=== PATIENT | female | born 1990 | race Caucasian/White ===

== ENCOUNTER 2022-03-09 08:22 | Outpatient (CLI) | payer OTHER, SELFPAY ==
[2022-03-09 09:20] LABS: Alanine Aminotransferase 23 U/L (6-35); Albumin Level 4.2 g/dL (3.5-5.1); Alkaline Phosphatase 123 U/L (38-126); Anion Gap 10 mmol/L (8-16); Aspartate Amino Transferase 23 U/L (14-36); Bilirubin,Total 0.6 mg/dL (0.2-1.3); Blood Urea Nitrogen 12 mg/dL (7-17); Calcium 8.8 mg/dL (8.4-10.2); Carbon Dioxide 24 mmol/L (22-30); Chloride 105 mmol/L (98-107); Cholesterol 160 mg/dL (0-200); Estimated Glomerular Filt Rate > 60; Glucose 97 mg/dL (65-110); HDL Direct 34 mg/dL; Potassium 3.9 mmol/L (3.4-5.0); Sodium 139 mmol/L (137-145); Triglycerides 181 mg/dL (<150)
[2022-03-09 09:31] LABS: LDL Cholesterol Direct 91 mg/dL
[2022-03-09 09:33] LABS: Hemoglobin A1C 4.8 % (<5.7)
[2022-03-09 09:51] LABS: Thyroid Stimulating Hormone 0.957 uIU/mL (0.465-4.680)
[2022-03-09 10:26] LABS: Folic Acid 11.2 ng/mL (2.76->20)
[2022-03-09 10:27] LABS: Free T4 Free Thyroxine 0.91 ng/mL (0.78-2.19); Vitamin D 25 Hydroxy 45.7 ng/mL
[2022-03-12 03:55] LABS: Thyroid Peroxidase Antibodies <1 IU/mL (<9)
== END 2022-03-09 08:23 | disposition home or self-care (01) ==
LOC: ANHLAB 08:34
PROVIDERS: PCP Internal Medicine Endocrinology, Diabetes & Metabolism; Referring Provider Internal Medicine Endocrinology, Diabetes & Metabolism; Visit Provider Internal Medicine Endocrinology, Diabetes & Metabolism
DX: E06.3 Autoimmune thyroiditis (principal); E53.8 Deficiency of other specified B group vitamins; E55.9 Vitamin D deficiency, unspecified
CPT/HCPCS: 36415; 80053; 80061; 82306; 82607; 82746; 83036; 84439; 84443; 84481; 86376

== ENCOUNTER 2022-06-08 09:05 | Outpatient (CLI) | payer OTHER, SELFPAY ==
[2022-06-15 04:58] LABS: Fecal Fat, Ql Normal (Normal)
[2022-06-15 13:41] LABS: Gliadin AB, IgG <1.0 U/mL (<15.0); TTG IGA AB <1.0 U/mL (<15.0)
[2022-06-17 18:27] LABS: Pancreatic Elastase, Stool >500 mcg/g
== END 2022-06-08 09:06 | disposition home or self-care (01) ==
PROVIDERS: PCP Internal Medicine Endocrinology, Diabetes & Metabolism; Visit Provider Internal Medicine Endocrinology, Diabetes & Metabolism
DX: R14.0 Abdominal distension (gaseous) (principal)
CPT/HCPCS: 36415; 82653; 82705; 83516; 86003; 86255

== ENCOUNTER 2022-06-15 08:05 | Outpatient (CLI) | payer OTHER, SELFPAY ==
--- NOTE | ~2022-06-15 | DEXA_ITS ---
Bone Density Report Name: RADHA CARREON Age: 32 Sex: Female Ethnicity: White Date of : 1990 Indication: postmenopausal; parental hip fracture; Referring Provider: YOHAN, BRYAN Marino Study: Bone densitometry was performed. Exam Date: June 15, 2022 Accession number: [id number] Bone Density: Region BMD T-score Z-score Classification AP Spine(L1-L4) 1.059 0.1 Femoral Neck (Left) 1.069 2.1 Total Hip (Left) 1.239 2.5 Femoral Neck (Right) 0.975 1.2 Total Hip (Right) 1.161 1.8 Total Hip Mean 1.200 2.2 World Health Organization criteria for BMD impression classify patients as: Normal (T-score at or above -1.0), Osteopenia (T-score between -1.0 and -2.5), or Osteoporosis (T-score at or below -2.5). 10-year Fracture Risk(1): Major Osteoporotic Fracture 3.1% Hip Fracture < 0.1% Reported Risk Factors: [place] (), Neck BMD=0.975, BMI=40.5, parental fracture Input outside FRAX(R) limits. Adjusted to:Age=40 (1) FRAX(R) Version 3.08. Fracture probability calculated for an untreated patient. Fracture probability may be lower if the patient has received treatment. Clinical Information Provided by Patient: Parent has had a hip fracture Has used the following medications: Vitamin D Patient maximum height was 64 No regular weight bearing exercise Drinks caffeinated beverages Onset of menses at age 10 Number of children 2 Impression: The patient has risk factors, including: parental hip fracture. Discussion: BONE DENSITY IS ABOVE THE MINIMUM DESIRABLE LEVEL AT ALL SKELETAL SITES TESTED. This patient?s bone mineral density is above the minimum desirable level (T-score -1.0 or better) at all sites measured. The patient should follow a healthful lifestyle (good nutrition with adequate calcium and vitamin D, and appropriate weight-bearing exercise). Follow-Up: Consider repeating this study in 5 years or sooner if there is some new clinical indication. Reported by: STORMY on 06/15/2022 10:51:00 AM. Reviewed, dictated and finalized at location [facility]
== END 2022-06-15 08:06 | disposition home or self-care (01) ==
LOC: ANHIMG 08:06
PROVIDERS: PCP Internal Medicine Endocrinology, Diabetes & Metabolism; Visit Provider Internal Medicine Endocrinology, Diabetes & Metabolism
DX: Z82.62 Family history of osteoporosis (principal)
CPT/HCPCS: 77080

== ENCOUNTER 2022-07-28 09:00 | Outpatient (RCR) | payer OTHER, SELFPAY ==
--- NOTE | 2022-06-15 15:53 | PTOPEVAL1 ---
Assessment and note entered by Elinor Willis, PT Evaluation Information Assessment Status Evaluation Diagnosis cervical spondylosis Onset past year Subjective Information chronic pain in neck for 5 years, with vomiting during --troubles since then; more spasms and pain over the past year and went to dr; had EMG over both arms: mild carpal tunnel B and elbow nerve subluxing ; had MRI Jacob cervical disc protruding and more curvature in neck; dr said to do therapy and if therapy did not help, consider injections into disc space; have not had PT for neck; Reported Pain Level Pain Score Self Report Additional Pain Score Comments pain range of 0-6/10; spasms in neck, numbness in both arms--into R and L 4 & 5th fingers; hearing muffled, little dizzy and blurry vision; get headaches at base of skull and to R or L side of head, behind ear; headaches occur few times a week, take meds and ease 1-2 hours; pain increases with movement of neck--looking down looking up; with sleeping awaken with pain 2x/ wk with moving and pain increase; decrease pain with meds--aleve, upright position of neck, move and change position; use Biofreeze, massage gun; also have issues with mild B carpal tunnel and elbow nerve dislocate ; demo and educated on use of Theracane for self massage to trigger points--used with good relief and stated she is going to obtain one for home; reinforced use of heat and stretching to relax muscles. Assessment PT Clinical Summary Mally has the diagnosis of cervical pain with radiculopathy into R and L fingers, with headaches 2x/wk. She reports chronic pain in neck with recent increase. Oswestry self assessment score of 30% limitation in activity level. Activity level and sleep are disrupted due to pain. She has had an EMG for R and L UE, with report of mild carpal tunnel and elbow nerve dislocation B. And reports not being able to hold onto things very well or open jars. 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
--- NOTE | 2022-07-28 09:21 | PTOPDC ---
Assessment and note entered by Elinor Willis, PT Evaluation Information Assessment Status Discharge Diagnosis cervical spondylosis Onset past year Subjective Information Mally reports: doing much better, not having any neck pain; has been doing her exercises--the stretches help her pain and headaches; ready to be completed with therapy. Neck self assessment score of 2% limitation in activity. Reported Pain Level Pain Score 0: Self Report Additional Pain Score Comments have not had any neck pain the past week, did have a headache last week, like tension headache, took ibuprofen and it eased with stretching, did not last very long,; no waking up from sleeping due to neck pain; intermittent numbness and tingling in both arms from elbows into 4 & 5th fingers-- mostly at night with sleeping and elbows bent, tried the braces, but could not sleep with them; Assessment PT Clinical Summary Mally has received 8 PT sessions. Compared to the initial evaluation: she has improved in all areas: pain at the high rating from 6 to 0/10; only 1 headache in the past week; no pain with cervical ROM; posture and strength increased over cervical-thoracic musculature and cherry pitter dynamometer; self assessment functional score rating from 20 to 2%. She has been educated on home exercises and posture. She continues to have some numbness and tingling over R and L ulnar nerve with sleeping, due to elbows bent. The goals were achieved. Discharge PT services. Plan of Care PT Services Indicated No
== END 2022-08-29 12:58 | disposition home or self-care (01) ==
LOC: ANHPT 09:00
PROVIDERS: PCP Internal Medicine Endocrinology, Diabetes & Metabolism
DX: M54.2 Cervicalgia (principal); R20.2 Paresthesia of skin; M79.18 Myalgia, other site
CPT/HCPCS: 97110; 97140; 97162; 97530

== ENCOUNTER 2022-09-14 10:22 | Outpatient (CLI) | payer OTHER, SELFPAY ==
[2022-09-14 13:46] LABS: Alanine Aminotransferase 22 U/L (6-35); Albumin Level 4.5 g/dL (3.5-5.1); Alkaline Phosphatase 107 U/L (38-126); Anion Gap 7 mmol/L (8-16); Aspartate Amino Transferase 22 U/L (14-36); Bilirubin,Total 0.5 mg/dL (0.2-1.3); Blood Urea Nitrogen 8 mg/dL (7-17); Calcium 9.2 mg/dL (8.4-10.2); Carbon Dioxide 26 mmol/L (22-30); Chloride 106 mmol/L (98-107); Estimated Glomerular Filt Rate > 60; Glucose 99 mg/dL (65-110); Potassium 4.1 mmol/L (3.4-5.0); Sodium 139 mmol/L (137-145)
[2022-09-14 14:00] LABS: Free T4 Free Thyroxine 0.99 ng/mL (0.78-2.19)
[2022-09-17 13:36] LABS: Thyroid Peroxidase Antibodies <1 IU/mL (<9)
[2022-09-18 04:20] LABS: Triiodothyronine T3 Free 3.4 pg/mL (2.3-4.2)
== END 2022-09-14 10:23 | disposition home or self-care (01) ==
LOC: ANHLAB 10:25
PROVIDERS: PCP Internal Medicine Endocrinology, Diabetes & Metabolism; Visit Provider Internal Medicine Endocrinology, Diabetes & Metabolism
DX: E06.3 Autoimmune thyroiditis (principal)
CPT/HCPCS: 36415; 80053; 84439; 84443; 84481; 86376

== ENCOUNTER 2023-03-01 06:51 | Outpatient (CLI) | payer OTHER, SELFPAY ==
[2023-03-01 08:07] LABS: Basophils Percent Auto 0.7 % (0.2-1.2); Eosinophils Absolute Auto 0.2 K/mm3 (0-0.3); Eosinophils Percent Auto 3.5 % (0-4.4); Hematocrit 43.2 % (37.0-47.0); Hemoglobin 14.1 g/dL (12.0-15.0); Immature Granulocyte Absolute 0.01 K/mm3 (0.00-0.031); Immature Granulocyte Percent A 0.2 % (0-0.5); Lymphocytes Absolute Auto 0.95 K/mm3 (0.9-3.2); Mean Corpuscular HGB Conc 32.6 g/dl (32-36); Mean Corpuscular Hemoglobin 29.6 pg (26-34); Mean Corpuscular Volume 90.8 fl (80-100); Mean Platelet Volume 12.3 fl (7.4-10.4); Monocytes Absolute Auto 0.3 K/mm3 (0.1-0.6); Monocytes Percent Auto 7.5 % (2.6-8.5); Neutrophils Percent Auto 67.1 % (45.5-73.1); Platelet Count Result 158 k/mm3 (150-375); Red Blood Count 4.76 M/mm3 (4.2-5.4); Red Cell Distribution Width 12.7 % (11.5-14.5); White Blood Count 4.5 K/mm3 (4.5-10.0)
[2023-03-01 08:19] LABS: Alanine Aminotransferase 23 U/L (6-35); Albumin Level 4.2 g/dL (3.5-5.1); Alkaline Phosphatase 97 U/L (38-126); Anion Gap 6 mmol/L (8-16); Aspartate Amino Transferase 23 U/L (14-36); Bilirubin,Total 0.4 mg/dL (0.2-1.3); Blood Urea Nitrogen 10 mg/dL (7-17); Calcium 8.7 mg/dL (8.4-10.2); Carbon Dioxide 29 mmol/L (22-30); Chloride 106 mmol/L (98-107); Cholesterol 145 mg/dL (0-200); Estimated Glomerular Filt Rate > 60; Glucose 92 mg/dL (65-110); HDL Direct 33 mg/dL; Sodium 141 mmol/L (137-145); Triglycerides 109 mg/dL (<150)
[2023-03-01 08:30] LABS: LDL Cholesterol Direct 88 mg/dL
[2023-03-01 08:35] LABS: T4 Thyroxine 9.78 ug/dL (5.53-11.0)
[2023-03-01 08:49] LABS: Thyroid Stimulating Hormone 0.799 uIU/mL (0.465-4.680)
== END 2023-03-01 06:52 | disposition home or self-care (01) ==
LOC: ANHLAB 06:53
PROVIDERS: PCP Family Medicine; Visit Provider Family Medicine
DX: Z13.29 Encounter for screening for other suspected endocrine disorder (principal); Z13.220 Encounter for screening for lipoid disorders; I10 Essential (primary) hypertension
CPT/HCPCS: 36415; 80053; 80061; 84436; 84443; 85025

== ENCOUNTER 2023-04-17 15:45 | Outpatient (RCR) | payer OTHER, SELFPAY ==
--- NOTE | 2023-03-15 17:25 | PTOPEVAL1 ---
Assessment and note entered by Aroldo Angelo Evaluation Information Assessment Status Evaluation Diagnosis right hip pain Onset 12/13/22 Subjective Information Pt. reports that she developed described hip pain about 3 months ago. She describes pain at the greater trochanter, into the buttock, through the hamstring and down to the knee. She does notices some clicking into the hip. She reports that pain is worsened with walking and standing. She also notices pain increase with weather changes. She reports that pain can only be relieved with taking Aleve and described self massage. She reports that she has attempted heat with little relief. Pt. reports that she is able to stand as long as she needs, just becomes more painful the longer she stands. She states that pain will disrupt her sleep on occasion. She reports her goal for therapy is to decrease her pain for standing. Reported Pain Level Pain Score 8: Self Report Assessment PT Clinical Summary Pt. is a 32 year old female who enters the clinic with right hip pain. Cannot fully rule out lumbar radiculopathy or piriformis syndrome on this date . She currently presents with impaired flexibility, impaired gait, impaired l.e. strength , impaired postural awareness and pain. She responds well to Rx with pain reports at 3/10 post treatment. Continued skilled PT is indicated in order to address deficits to allow for improved comfort with IADL performance. Plan of Care Interventions Electrical Stimulation,Gait Training,Hot Pack/Cold Pack,Manual Therapy,Mechanical Traction,Neuro Re- education,Patient/Caregiver Educati,Therapeutic Activities,Therapeutic Exercise PT Services Indicated Yes Treatment Frequency and 2x/week x 10 visits Duration These treatments will address the objective and functional deficits as defined above. The patient will be advanced safely and appropriately in order for the patient to progress towards his/her prior level of function. Additional exercises will be introduced and as well as a comprehensive home exercise program upon discharge, if needed, ?to ensure carryover of functional gains achieved in the clinic. This treatment plan has been reviewed and agreement upon by the patient.
--- NOTE | 2023-03-15 17:25 | OPREHPOC ---
Outpatient Therapy Plan of Care This is a Multidisciplinary Plan of Care that may contain components documented by all disciplines (PT, OT, and ST.) PT Problem 1 PT Problem #1 Knowledge Deficit PT Goal 1 Goal Independent with a HEP addressing core strength and flexibility. Target Visit 2 PT Problem 2 PT Problem #2 Impaired Flexibility PT Goal 1 Goal Present at 15 degrees from full knee extension with the 90/90 test on the right and left. Target Visit 8 PT Problem 3 PT Problem #3 Impaired Gait PT Goal 1 Goal Pt. will ambulate over level surface without deviation Target Visit 10 PT Problem 4 PT Problem #4 Impaired Functional Mobil PT Goal 1 Goal -Pt. will increase LEFS score to 75 or greater indicating significant improvement in function. -Pt. will report being able to sleep through the night without pain disturbance. Target Visit 10 PT Problem 5 PT Problem #5 Impaired Strength PT Goal 1 Goal Pt. will present with 5/5 bilateral hip abduction strength and 5/5 right hip flexion strength Target Visit 10
--- NOTE | 2023-04-17 16:24 | PTOPDC ---
Assessment and note entered by Elinor Willis, PT Evaluation Information Assessment Status Discharge Diagnosis right hip pain Onset 12/13/22 Subjective Information pain is less, doing more activity- walked around in [place] yesterday; doing exercises at home, feel like ready to be finished with therapy; has good knowledge of what to do to help her pain; Reported Pain Level Pain Score Self Report Additional Pain Score Comments pain range of 0-3/10 in past week; intermittent achy in lateral hip and thigh, low back; when weather changes have achy feeling all over; decrease pain: stretching, roller over ITB; is able to sleep through the night without awakening; use a pillow between her knees; back pain is not as much; Assessment PT Clinical Summary Mally has received 8 PT sessions. Compared to the initial evaluation: pain at worst rating from 101/0 to 3/10; reported sleeping tolerance improved- able to sleep through the night; increased strength and activity level; Self assessment LE functional scale score of 63 to 74/80; is walking without limp on R LE; no pain with hamstring or piriformis stretch on R; increase flexibility of R hamstring and piriformis indep with HEP and has good understanding of self management of pain. The goals were achieved. Discharge PT. She is to continue with HEP and monitor posture. Plan of Care PT Services Indicated No
== END 2023-04-18 09:47 | disposition home or self-care (01) ==
LOC: ANHPT 15:45
PROVIDERS: PCP Family Medicine; Visit Provider Family Medicine
DX: M25.551 Pain in right hip (principal)
CPT/HCPCS: 97110; 97140; 97161

== ENCOUNTER 2023-04-27 00:44 | Day surgery (SDC) | payer OTHER, SELFPAY ==
[2023-04-13 13:56] VITALS: BMI 42.5
--- NOTE | 2023-04-26 12:14 | PM.HPGS ---
History of Present Illness History of Present Illness Consent: Risks, benefits, and alternatives have been discussed and questions answered. Patient agrees to proceed with procedure. Chief complaint: Melena,Change in Bowel Habits, vomiting,GERD Narrative: Mally Rose is a 33 year old female Who has had a noticeable change in bowel habits where she reports that they are #5 on the [place] stool scale and it is ?stringy?. She feels like she has to constantly wipe to get clean.? She also states that she will have hard pellet-like stools as well.? She does report bilateral lower abdominal cramping with bowel movements that does not always dissipate after.? She also reports ?oily? stools.? She does report constant rectal pressure and feeling like something is always there-she does not see any relief with standing up.? She even reports after the bowel movement the rectal pain will be somewhat worse to where she can not even sit down.? she has seen some blood in her stools as well. She also has symptoms of reflux and has bloating and fullness when eating. She is on Mounjaro, which she just began a month ago. She has had acid reflux symptoms, mostly heartburn, for many years. She usually uses Tums. She has a prescription for pantoprazole but has not yet started it. Review of Systems Review of Systems: All systems reviewed & are unremarkable except as noted in HPI and below PMFSH Past Medical History Medical History Abdominal pain, vomiting, and diarrhea Altered bowel habits Bilateral lower abdominal cramping GERD (gastroesophageal reflux disease) Hematochezia Hypertension IBS (irritable bowel syndrome) Obesity Rectal pressure Right hip pain Screening for cholesterol level Screening for thyroid disorder Tenesmus (rectal) Vomiting Surgical History Surgical History Hx of appendectomy Family History Family History Father Hypertension Heart disease Mother Asthma Diabetes mellitus Thyroid disorder Social History Social History Smoking status: Never smoker Alcohol intake: never Substance use: never Substance use type: does not use Lack of Transportation: No Lack of Food: Never True Current Housing: I Have Housing Concerned About Future Housing: No Difficulty Paying Gas/Electric Bills: No Difficulty Paying for Meds: No Currently Unemployed: No Living arrangements: with family Occupation/Education: occupation 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 Agree to blood products: Yes Meds Home Medications and Allergies Home Medications Medication Instructions Recorded Confirmed Type escitalopram oxalate 10 mg tablet 10 mg PO DAILY #90 tabs 02/22/23 04/27/23 Rx (Lexapro) amlodipine 10 mg tablet 10 mg PO DAILY #90 tabs 04/25/23 04/27/23 Rx pantoprazole 40 mg tablet,delayed 40 mg PO QAM #90 tabs 04/25/23 04/27/23 Rx release tirzepatide 7.5 mg/0.5 mL 7.5 mg (0.5 mL) subcut WEEKLY #2 mL 04/25/23 04/27/23 Rx subcutaneous pen injector (Mounjaro) Allergies Allergy/AdvReac Type Severity Reaction Status Date / Time adhesive tape Allergy Redness of Verified 04/27/23 07:19 Skin nifedipine Allergy Swelling Verified 04/27/23 07:19 HYDROCODONE BIT Allergy Unknown VOMITING Uncoded 04/27/23 07:19 Exam Const: General: alert Orientation/consciousness: patient oriented x3 Resp: Auscultation: clear to auscultation bilaterally Cardio: Rhythm: regular rhythm GI: GI Palp: Yes Soft to palpation and No Tenderness to palpation present (GI) Neuro: General: patient oriented x3 Assessment and Plan Assessment and plan (1) Hematochezia: Code(s): K92.1 - Melena Status: Acute Assessmen
[2023-04-27 07:23] VITALS: BP 121/83; PULSE 92; RESP 16; TEMP 36.2; O2SAT 99
[2023-04-27] MEDS: LACTATED RINGERS 1,000 ML 150 ML IV CONT (07:35)
--- NOTE | 2023-04-27 08:14 | WPDANESEPPF ---
Anes - Initial Pre Proc Eval Procedure: Operation Date: 04/27/23 08:30 Proposed Procedures p Esophagogastroduodenoscopy & Colonoscopy - Trev Sen MD Date/Time: 04/27/23 08:14 Surgeon: Trev Sen MD Pre Op Diagnosis: Melena,Change in Bowel Habits, vomiting,GERD Patient Data Age: 33 Gender: F Height: 1.6 m Weight: 101.4 kg Last Vital Signs Temp 97.1 F L 04/27/23 07:23 Pulse 92 04/27/23 07:23 Resp 16 04/27/23 07:23 BP 121/83 04/27/23 07:23 Pulse Ox 99 04/27/23 07:23 O2 Del Method Room Air 04/27/23 07:23 Allergies Allergy/AdvReac Type Severity Reaction Status Date / Time adhesive tape Allergy Redness of Verified 04/27/23 07:19 Skin nifedipine Allergy Swelling Verified 04/27/23 07:19 HYDROCODONE BIT Allergy Unknown VOMITING Uncoded 04/27/23 07:19 Home Medications Medication Instructions Recorded Confirmed Type escitalopram oxalate 10 mg tablet 10 mg PO DAILY #90 tabs 02/22/23 04/27/23 Rx (Lexapro) amlodipine 10 mg tablet 10 mg PO DAILY #90 tabs 04/25/23 04/27/23 Rx pantoprazole 40 mg tablet,delayed 40 mg PO QAM #90 tabs 04/25/23 04/27/23 Rx release tirzepatide 7.5 mg/0.5 mL 7.5 mg (0.5 mL) subcut WEEKLY #2 mL 04/25/23 04/27/23 Rx subcutaneous pen injector (Mounjaro) Patient hx anesthesia problems: none Family hx anesthesia problems: none Results Review: All pre-operative results and documents have been reviewed as part of the pre-operative evaluation. [facility] Past Medical History Medical History Abdominal pain, vomiting, and diarrhea Altered bowel habits Bilateral lower abdominal cramping GERD (gastroesophageal reflux disease) Hematochezia Hypertension IBS (irritable bowel syndrome) Obesity Rectal pressure Right hip pain Screening for cholesterol level Screening for thyroid disorder Tenesmus (rectal) Vomiting Surgical History Surgical History Hx of appendectomy Family History Family History Father Hypertension Heart disease Mother Asthma Diabetes mellitus Thyroid disorder Social History Social History Smoking status: Never smoker Alcohol intake: never Substance use: never Substance use type: does not use Lack of Transportation: No Lack of Food: Never True Current Housing: I Have Housing Concerned About Future Housing: No Difficulty Paying Gas/Electric Bills: No Difficulty Paying for Meds: No Currently Unemployed: No Living arrangements: with family Occupation/Education: occupation 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 Informed Consent: The patient's anesthetic plan and its attendant risks and benefits were discussed with the patient/family/POA. Questions were solicited and answers provided to the satisfaction of the patient/family/POA.
[2023-04-27 08:56] VITALS: BP 114/76; PULSE 84; RESP 15; O2SAT 99
[2023-04-27 09:06] VITALS: BP 119/85; PULSE 74; RESP 16; O2SAT 100
[2023-04-27 09:16] VITALS: BP 124/88; PULSE 77; RESP 21; O2SAT 100
--- NOTE | 2023-04-27 09:16 | SUR.OPER ---
EGD started at 0824 and ended at 0829. Colonoscopy started at 0835 and ended at 0857.
== END 2023-04-27 09:22 | disposition home or self-care (01) ==
PROVIDERS: PCP Family Medicine; Visit Provider Internal Medicine Gastroenterology
PROC: 0DJ08ZZ Inspection of Upper Intestinal Tract, Via Natural or Artificial Opening Endoscopic (ICD-10-PCS; CPT 43235; principal; 2023-04-27 08:30)
DX: K29.50 Unspecified chronic gastritis without bleeding (principal); K21.00 Gastro-esophageal reflux disease with esophagitis, without bleeding; K29.80 Duodenitis without bleeding; K22.2 Esophageal obstruction; K62.1 Rectal polyp; K44.9 Diaphragmatic hernia without obstruction or gangrene; K57.30 Diverticulosis of large intestine without perforation or abscess without bleeding; I10 Essential (primary) hypertension; K58.9 Irritable bowel syndrome, unspecified; Z79.85 Long-term (current) use of injectable non-insulin antidiabetic drugs; E66.01 Morbid (severe) obesity due to excess calories; Z68.39 Body mass index [BMI] 39.0-39.9, adult
CPT/HCPCS: 43239; 45381; 45385; 87081; 88305; J2704; J7120

== ENCOUNTER 2024-04-08 15:31 | Emergency (ER) | payer OTHER, SELFPAY ==
[2024-04-08 15:40] VITALS: BP 167/110; PULSE 78; RESP 18; TEMP 36.7; O2SAT 100
--- NOTE | 2024-04-08 16:23 | ED_ITS ---
HPI - URI/Sore Throat General Chief Complaint: Upper Respiratory Infection Stated Complaint: Chest Congestion Time Seen by Provider: 04/08/24 16:17 Source: patient and RN notes reviewed Mode of arrival: ambulatory Limitations: no limitations History of Present Illness HPI Narrative: Patient presents today complaining of a 10 day history of nasal congestion that is worse at night, postnasal drip, cough. Denies shortness of breath, fever. She has had some negative COVID test at home. She has been taking Mucinex and Coricidin HBP with some mild relief. No history of asthma or COPD. She is a nonsmoker. Patient has history of hypertension and was taking medication, but her PCP recently left and she needs to make an appointment with a new one. Related Data Allergies Allergy/AdvReac Type Severity Reaction Status Date / Time adhesive tape Allergy Redness of Verified 04/27/23 07:19 Skin nifedipine Allergy Swelling Verified 04/27/23 07:19 HYDROCODONE BIT Allergy Unknown VOMITING Uncoded 04/27/23 07:19 Review of Systems Review of Systems: CONSTITUTIONAL: Denies body aches, fever, chills, or sweats. EYES: Denies visual changes, redness, or discharge. ENT: Denies rhinorrhea, sore throat, or otalgia.+ postnasal drip, congestion CARDIOVASCULAR: Denies chest pain, palpitations, or edema. RESPIRATORY: Denies dyspnea. + cough GASTROINTESTINAL: Denies abdominal pain, nausea, vomiting, or diarrhea. GENITOURINARY: Denies dysuria or hematuria. SKIN: Denies rash, itching, or wounds. MUSCULOSKELETAL: Denies back pain, joint pain, or myalgia. NEUROLOGIC: Denies headache, numbness, tingling, or weakness. PSYCH: Denies depression or anxiety. [facility] Past Medical History Medical History Abdominal pain, vomiting, and diarrhea Altered bowel habits Bilateral lower abdominal cramping GERD (gastroesophageal reflux disease) Hematochezia Hypertension IBS (irritable bowel syndrome) Obesity Rectal pressure Right hip pain Screening for cholesterol level Screening for thyroid disorder Tenesmus (rectal) Vomiting Weight loss counseling, encounter for Surgical History Surgical History Hx of appendectomy Family History Family History Father Hypertension Heart disease Mother Asthma Diabetes mellitus Thyroid disorder Social History Social History Smoking status: Never smoker Alcohol intake: never Substance use: never Substance use type: does not use Lack of Transportation: No Lack of Food: Never True Current Housing: I Have Housing Concerned About Future Housing: No Difficulty Paying Gas/Electric Bills: No Difficulty Paying for Meds: No Currently Unemployed: No Living arrangements: with family Occupation/Education: occupation 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 Please see nursing chart for further information. There is no relevant family history pertinent to the presenting complaint Exam Narrative: GENERAL: Mildly ill-appearing, well-nourished, and in no acute distress. HEAD: Normocephalic, atraumatic. EYES: EOMI. No redness or drainage. Conjunctivae normal. ENT: Mucous membranes pink and moist. Nares congested. No rhinorrhea. TMs normal bilaterally. Throat normal. Uvula midline. NECK: Normal AROM. Supple. No lymphadenopathy. CHEST: No respiratory distress. Clear to auscultation. HEART: Regular rate and rhythm. No murmur appreciated. EXTREMITIES: Normal range of motion. No edema. SKIN: Warm, dry, no rash. Capillary refill normal. Normal skin turgor. NEURO: No focal deficits. Alert and oriented x3. Gait steady. PSYCH: Normal affect. No signs of depression or anxiety. Course Course Level of Care: Express Care Visit Vital Signs Vital signs: Vital Signs Temperature 98.1 F 04/08/24 15:40 Pulse Rate 78 04/08/24 15:40 Respiratory Rate 18 04/08/24 15:40 Blood Pressure 167/110 H 04/08/24 15:40 Pulse Oximetry 100 04/08/24 15:40 Oxygen Delivery Room Air 04/08/24 15:40 Temperature 98.1 F 04/08/24 15:40 Pulse Rate 78 04/08/24 15:40 Respiratory Rate 18 04/08/24 15:40 Blood Pressure 167/110 H 04/08/24 15:40 Pulse Oximetry 100 04/08/24 15:40 Oxygen Delivery Room Air 04/08/24 15:40 Reviewed MDM - URI/Sore Throat MDM Narrative Medical decision making narrative: Patient will be treated with Augmentin for presumed sinusitis. Recommend continuing Mucinex or Coricidin HBP for symptoms as well. Anticipatory guidance given. Differential Diagnosis Differential diagnosis: Likely upper respiratory infection, sinusitis, viral infection and bronchitis Critical Care Time Critical Care Time Critical Care Time: No Discharge Plan Discharge Clinical Impression: Sinusitis Qualifiers: Sinusitis location: unspecified location Chronicity: acute Recurrence: non- recurrent Qualified Code(s): J01.90 - Acute sinusitis, unspecified Patient Disposition: Home, Self-Care Condition: Stable Instructions: Antibiotic Form, Sinusitis (ED) Additional Instructions: Please take the Augmentin as prescribed until gone. Continue [id number] medication as needed. Follow-up with a PCP in 3 days if symptoms are not improving. Go to the ER immediately if symptoms worsen to include shortness of breath, chest pain, new fever. Your blood pressure was elevated above 120/80 today at Urgent Care. This puts you above the threshold for follow up. Please schedule a followup visit with your personal physician as soon as possible, for further evaluation and treatment. Even blood pressure exceeding 120/80 may indicate pre-hypertension. Prescriptions: New amoxicillin-pot clavulanate 875-125 mg tablet 1 tablet PO Q12H 7 Days Qty: 14 0RF No Action escitalopram oxalate [Lexapro] 10 mg tablet 10 mg PO DAILY Qty: 90 1RF amlodipine 10 mg tablet 10 mg PO DAILY Qty: 90 1RF pantoprazole 40 mg tablet,delayed release (DR/EC) 40 mg PO QAM Qty: 90 1RF Mounjaro 7.5 mg/0.5 mL pen injector See Rx Instructions .ROUTE .COMPLEX Qty: 4 1RF Dose Instruction: INJECT THE CONTENTS OF ONE PEN SUBCUTANEOUSLY WEEKLY DIRECTED Rx Instructions: INJECT THE CONTENTS OF ONE PEN SUBCUTANEOUSLY WEEKLY DIRECTED Follow-up/Referrals: PHYSICIAN,ENGINEERING DRAWINGS CHECKER [Primary Care Provider] - Time of Disposition: 16:27
== END 2024-04-08 16:29 | disposition home or self-care (01) ==
PROVIDERS: Emergency Provider Nurse Practitioner
DX: J01.90 Acute sinusitis, unspecified (principal); K21.9 Gastro-esophageal reflux disease without esophagitis; I10 Essential (primary) hypertension; E66.9 Obesity, unspecified; Z68.39 Body mass index [BMI] 39.0-39.9, adult
CPT/HCPCS: 99213; G0463

== ENCOUNTER 2024-05-21 06:49 | Outpatient (CLI) | payer OTHER, SELFPAY ==
[2024-05-21 07:35] LABS: Hemoglobin 13.5 g/dL (12.0-15.0); Mean Corpuscular HGB Conc 33.8 g/dl (32-36); Mean Corpuscular Hemoglobin 30.4 pg (26-34); Mean Corpuscular Volume 90.1 fl (80-100); Platelet Count Result 155 k/mm3 (150-375); Red Blood Count 4.44 M/mm3 (4.2-5.4); Red Cell Distribution Width 12.3 % (11.5-14.5); White Blood Count 5.2 K/mm3 (4.5-10.0)
[2024-05-21 07:50] LABS: Alanine Aminotransferase 16 U/L (6-35); Albumin Level 4.1 g/dL (3.5-5.1); Alkaline Phosphatase 69 U/L (38-126); Anion Gap 5 mmol/L (4-12); Aspartate Amino Transferase 21 U/L (14-36); Bilirubin,Total 0.8 mg/dL (0.2-1.3); Blood Urea Nitrogen 10 mg/dL (7-17); Carbon Dioxide 28 mmol/L (22-30); Chloride 107 mmol/L (98-107); Cholesterol 153 mg/dL (0-200); Estimated Glomerular Filt Rate > 60; Glucose 96 mg/dL (65-110); HDL Direct 40 mg/dL; Potassium 4.2 mmol/L (3.4-5.0); Sodium 140 mmol/L (137-145); Triglycerides 104 mg/dL (<150)
[2024-05-21 08:00] LABS: Hemoglobin A1C 4.9 % (<5.7); LDL Cholesterol Direct 79 mg/dL
[2024-05-21 08:25] LABS: Thyroid Stimulating Hormone Reflex 0.996 uIU/mL (0.465-4.68)
== END 2024-05-21 06:50 | disposition home or self-care (01) ==
LOC: ANHLAB 06:50
PROVIDERS: PCP Nurse Practitioner Family; Visit Provider Nurse Practitioner Family
DX: Z13.1 Encounter for screening for diabetes mellitus (principal); Z13.0 Encounter for screening for diseases of the blood and blood-forming organs and certain disorders involving the immune mechanism; Z13.220 Encounter for screening for lipoid disorders; Z13.29 Encounter for screening for other suspected endocrine disorder
CPT/HCPCS: 36415; 80053; 80061; 83036; 84443; 85027

== ENCOUNTER 2025-05-03 08:26 | Outpatient (CLI) | payer OTHER, SELFPAY ==
[2025-05-03 08:47] LABS: Hematocrit 41.9 % (37.0-47.0); Hemoglobin 14.0 g/dL (12.0-15.0); Mean Corpuscular HGB Conc 33.4 g/dl (32-36); Mean Corpuscular Hemoglobin 30.2 pg (26-34); Mean Corpuscular Volume 90.5 fl (80-100); Platelet Count Result 175 k/mm3 (150-375); Red Blood Count 4.63 M/mm3 (4.2-5.4); White Blood Count 6.1 K/mm3 (4.5-10.0)
[2025-05-03 09:38] LABS: Thyroid Stimulating Hormone Reflex 0.893 uIU/mL (0.465-4.68)
[2025-05-03 10:37] LABS: Alanine Aminotransferase 18 U/L (6-35); Albumin Level 4.3 g/dL (3.5-5.1); Alkaline Phosphatase 76 U/L (38-126); Anion Gap 8 mmol/L (4-12); Aspartate Amino Transferase 23 U/L (14-36); Bilirubin,Total 0.6 mg/dL (0.2-1.3); Blood Urea Nitrogen 10 mg/dL (7-17); Calcium 9.2 mg/dL (8.4-10.2); Carbon Dioxide 27 mmol/L (22-30); Chloride 105 mmol/L (98-107); Cholesterol 172 mg/dL (0-200); Estimated Glomerular Filt Rate > 60; Glucose 94 mg/dL (65-110); HDL Direct 42 mg/dL; Potassium 4.2 mmol/L (3.4-5.0); Sodium 140 mmol/L (137-145); Total Protein 7.3 g/dL (6.3-8.2); Triglycerides 135 mg/dL (<150)
[2025-05-03 11:06] LABS: Hemoglobin A1C 4.9 % (<5.7)
[2025-05-03 11:31] LABS: Vitamin B12 311.0 pg/mL (239-931)
== END 2025-05-03 08:27 | disposition home or self-care (01) ==
LOC: ANHLAB 08:31
PROVIDERS: PCP Nurse Practitioner Family; Visit Provider Nurse Practitioner Family
DX: R79.89 Other specified abnormal findings of blood chemistry (principal); Z13.29 Encounter for screening for other suspected endocrine disorder; Z13.1 Encounter for screening for diabetes mellitus; Z13.220 Encounter for screening for lipoid disorders; Z13.0 Encounter for screening for diseases of the blood and blood-forming organs and certain disorders involving the immune mechanism
CPT/HCPCS: 36415; 80053; 80061; 82607; 83036; 84443; 85027